=== PATIENT | male | born 1945 | race Caucasian/White ===

== ENCOUNTER 2019-07-22 11:31 | Emergency (ER) | payer MEDICARE ==
[~2019-07-22] VITALS: Ht 171 cm; Wt 78.4 kg
--- NOTE | 2019-07-22 12:25 | ED General ---
General Chief Complaint: General Problems/Pain Stated Complaint: TROUBLE SWALLOWING History of Present Illness Date Seen by Provider: Jul 22, 2019 Time Seen by Provider: 12:19 Initial Comments 73-year-old male started to have a lower substernal discomfort yesterday afternoon described mostly as pressure He seems to link this in some way to difficulty swallowing possibly swallowing makes it worse but he doesn't seem to be describing GERD-type symptoms particularly He was able to swallow liquids and ice cream after this started, he is able to handle his own secretions He denies any history of esophageal problems he denies any history of cardiac problems but says he's had strokes is on 3 different blood pressure medicines and Plavix No radiation of pain no nausea vomiting no shortness of breath he says this pain maxed out at 4/10 it is currently 2/10 he apprears in no d istress Allergies and Home Medications Allergies Coded Allergies: No Known Drug Allergies (Unverified , 07/22/19) Patient Home Medication List Home Medication List Reviewed: Yes Review of Systems Review of Systems Constitutional: no symptoms reported EENTM: no symptoms reported Respiratory: no symptoms reported Cardiovascular: chest pain; No palpitations, No syncope Gastrointestinal: No abdominal pain, No nausea, No vomiting Genitourinary: no symptoms reported Musculoskeletal: no symptoms reported Skin: no symptoms reported Past Iqgkabs-Vziqst-Wqolaa Hx Patient Social History Recent Foreign Travel: No Physical Exam Vital Signs Vital Signs - First Documented 07/22/19 11:35 Temp 36.2 Pulse 66 Resp 18 B/P (MAP) 116/73 (87) Pulse Ox 93 O2 Delivery Room Air Capillary Refill : Height, Weight, BMI Height: '" Weight: lbs. oz. kg; BMI Method: General Appearance: No Apparent Distress, WD/WN Eyes: Bilateral Eye PERRL, Bilateral Eye EOMI HEENT: Moist Mucous Membranes Neck: Supple Respiratory: Lungs Clear, Normal Breath Sounds Cardiovascular: Regular Rate, Rhythm Gastrointestinal: Normal Bowel Sounds, No Pulsatile Mass, Non Tender, Soft Extremity: Normal Capillary Refill, Non Tender, No Pedal Edema Progress/Results/Core Measures Suspected Sepsis SIRS Temperature: Pulse: Respiratory Rate: Laboratory Tests 07/22/19 11:55: White Blood Count 7.3 Blood Pressure / Mean: Laboratory Tests 07/22/19 11:55: Creatinine 1.31H, INR Comment 1.0, Platelet Count 294, Total Bilirubin 0.6 Results/Orders Lab Results Laboratory Tests Test 07/22/19 11:55 Range/Units White Blood Count 7.3 4.3-11.0 10^3/uL Red Blood Count 5.24 4.35-5.85 10^6/uL Hemoglobin 15.6 13.3-17.7 G/DL Hematocrit 46 40-54 % Mean Corpuscular Volume 88 80-99 FL Mean Corpuscular Hemoglobin 30 25-34 PG Mean Corpuscular Hemoglobin Concent 34 32-36 G/DL Red Cell Distribution Width 13.2 10.0-14.5 % Platelet Count 294 130-400 10^3/uL Mean Platelet Volume 9.7 7.4-10.4 FL Neutrophils (%) (Auto) 69 42-75 % Lymphocytes (%) (Auto) 20 12-44 % Monocytes (%) (Auto) 9 0-12 % Eosinophils (%) (Auto) 1 0-10 % Basophils (%) (Auto) 1 0-10 % Neutrophils # (Auto) 5.0 1.8-7.8 X 10^3 Lymphocytes # (Auto) 1.5 1.0-4.0 X 10^3 Monocytes # (Auto) 0.6 0.0-1.0 X 10^3 Eosinophils # (Auto) 0.1 0.0-0.3 10^3/uL Basophils # (Auto) 0.1 0.0-0.1 10^3/uL Prothrombin Time 13.2 12.2-14.7 SEC INR Comment 1.0 0.8-1.4 Activated Partial Thromboplast Time 30 24-35 SEC Sodium Level 142 135-145 MMOL/L Potassium Level 4.8 3.6-5.0 MMOL/L Chloride Level 104 98-107 MMOL/L Carbon Dioxide Level 27 21-32 MMOL/L Anion Gap 11 5-14 MMOL/L Blood Urea Nitrogen 10 7-18 MG/DL Creatinine 1.31 H 0.60-1.30 MG/DL Estimat Glomerular Filtration Rate 53 BUN/Creatinine Ratio 8 Glucose Level 106 H 70-105 MG/DL Calcium Level 10.0 8.5-10.1 MG/DL Corrected Calcium 8.5-10.1 MG/DL Magnesium Level 2.2 1.6-2.4 MG/DL Total Bilirubin 0.6 0.1-1.0 MG/DL Aspartate Amino Transf (AST/SGOT) 19 5-34 U/L Alanine Aminotransferase (ALT/SGPT) 22 0-55 U/L Alkaline Phosphatase 93 40-136 U/L Troponin I < 0.30 <0.30 NG/ML Total Protein 7.2 6.4-8.2 GM/DL Albumin 4.6 H 3.2-4.5 GM/DL Smear Scan My Orders Orders - VINCE WATSON MD Cbc With Automated Diff (07/22/19 12:16) Magnesium (07/22/19 12:16) Chest 1 View Ap/Pa Only (07/22/19 12:16) Ekg Tracing (07/22/19 12:16) Comprehensive Metabolic Panel (07/22/19 12:16) Protime With Inr (07/22/19 12:16) Partial Thromboplastin Time (07/22/19 12:16) O2 (07/22/19 12:16) Monitor-Rhythm Ecg Trace Only (07/22/19 12:16) Ed Iv/Invasive Line Start (07/22/19 12:16) Troponin I Fs (07/22/19 12:16) Aspirin Chewable Tablet (Baby Aspirin Ch (07/22/19 12:30) Clopidogrel Tablet (Plavix Tablet) (07/22/19 12:30) Medications Given in ED Current Medications Medications Dose Ordered Sig/Ethel Route Start Time Stop Time Status Last Admin Dose Admin Aspirin 324 mg ONCE ONCE PO 07/22/19 12:30 07/22/19 12:31 DC 07/22/19 12:33 324 MG Clopidogrel Bisulfate 75 mg ONCE ONCE PO 07/22/19 12:30 07/22/19 12:31 DC 07/22/19 12:33 75 MG Vital Signs/I&O 07/22/19 11:35 Temp 36.2 Pulse 66 Resp 18 B/P (MAP) 116/73 (87) Pulse Ox 93 O2 Delivery Room Air Capillary Refill : Progress Note : Progress Note Throughout the patient's stay here, he never seemed to be in any significant distress We did administer oral Plavix and aspirin and he seemed to swallow without difficulty her emained in a sinus rhythm at about 60 with occasional PVCs, never couplets no runs of V. tach Chest x-ray was read as representing COPD but no acute process CBC CMP and troponin were all negative Discussed the patient's situation with him at some length feel that with his age, history of vascular disease etc. he probably should be an overnight admission to complete cardiac rule out ECG Comment EKG shows a sinus rhythm with a rate of 61 he has unifocal PVCs no acute ST changes Departure Impression Primary Impression: Chest pain Qualified Codes: R07.9 - Chest pain, unspecified Disposition: 07 AGAINST MEDICAL ADVICE Condition: Stable Departure-Patient Inst. Referrals: MIKALA CAMPBELL MD (PCP/Family) Primary Care Physician Patient Instructions: Chest Pain Add. Discharge Instructions: Don't hesitate to return if you are worsening in some way VINCE WATSON MD Jul 22, 2019 12:25 POS
[2019-07-22 12:27] LABS: BASOPHILS # (AUTO) 0.1 10^3/uL (0.0-0.1); BASOPHILS % (AUTO) 1 % (0-10); EOSINOPHILS # (AUTO) 0.1 10^3/uL (0.0-0.3); EOSINOPHILS % (AUTO) 1 % (0-10); HEMATOCRIT 46 % (40-54); HEMOGLOBIN 15.6 G/DL (13.3-17.7); LYMPHOCYTES # (AUTO) 1.5 X 10^3 (1.0-4.0); LYMPHOCYTES % (AUTO) 20 % (12-44); MEAN CORPUSCULAR HEMOGLOBIN 30 PG (25-34); MEAN CORPUSCULAR HGB CONC 34 G/DL (32-36); MEAN CORPUSCULAR VOLUME 88 FL (80-99); MEAN PLATELET VOLUME 9.7 FL (7.4-10.4); MONOCYTES # (AUTO) 0.6 X 10^3 (0.0-1.0); MONOCYTES % (AUTO) 9 % (0-12); NEUTROPHILS % (AUTO) 69 % (42-75); PLATELET COUNT 294 10^3/uL (130-400); RED CELL DISTRIBUTION WIDTH 13.2 % (10.0-14.5); WHITE BLOOD COUNT 7.3 10^3/uL (4.3-11.0)
[2019-07-22] MEDS ORDERED: ASPIRIN 81 MG CHEW (CHILDREN'S ASA) PO ONE (12:30)
[2019-07-22] MEDS ORDERED: CLOPIDOGREL 75 MG (PLAVIX) TABLET PO ONE (12:30)
[2019-07-22 12:49] LABS: ALANINE AMINOTRANSFERASE 22 U/L (0-55); ALBUMIN 4.6 GM/DL (3.2-4.5); ALKALINE PHOSPHATASE 93 U/L (40-136); BILIRUBIN,TOTAL 0.6 MG/DL (0.1-1.0); BUN/CREATININE RATIO 8; CARBON DIOXIDE 27 MMOL/L (21-32); CHLORIDE 104 MMOL/L (98-107); CREATININE SERUM 1.31 MG/DL (0.60-1.30); GFR ESTIMATED 53; GLUCOSE 106 MG/DL (70-105); MAGNESIUM 2.2 MG/DL (1.6-2.4); POTASSIUM 4.8 MMOL/L (3.6-5.0); SODIUM 142 MMOL/L (135-145); TOTAL PROTEIN 7.2 GM/DL (6.4-8.2)
--- NOTE | 2019-07-22 12:56 | Diagnostic Imaging Report ---
INDICATION: Chest pain and difficulty swallowing. TIME OF EXAM: 12:24 p.m. COMPARISON: No prior studies are available for comparison. FINDINGS: The heart size normal. Lungs do show some hyperinflation consistent with COPD. No infiltrates are seen. No effusion or pneumothorax is detected. IMPRESSION: COPD. No acute feature is detected. Dictated by: Dictated on workstation # [id number]
[2019-07-22 13:24] LABS: PROTHROMBIN TIME PATIENT 13.2 SEC (12.2-14.7)
[2019-07-22 13:57] VITALS: BP 131/78
--- OUTSIDE RECORDS SUMMARY | 2019-08-15 05:33 | XMS REPORT | Continuity of Care Document ---
Author Organization Unknown POS Address Unknown SP Phone Unavailable SP Allergies Active Description Code Type Severity POS Reaction Onset Reported/Identified POS to Patient Clinical Status POS Yes No Known Drug Allergies [id number] Drug SP Unknown N/A 07/22/2019 SP SP Medications There is no data. Problems Date Dx Coded Attending Type Code POS Diagnosed By POS 07/26/2019 VINCE WATSON MD Ot R07. 9 SP PAIN, UNSPECIFIED SP 07/26/2019 JONES DO, JUSTICE Ot E78.5 SP UNSPECIFIED SP 07/26/2019 JONES DO, JUSTICE Ot I10 SP (PRIMARY) HYPERTENSION SP 07/26/2019 JONES DO, JUSTICE Ot I20.0 SP ANGINA SP 07/26/2019 JONES DO, JUSTICE Ot Z86.73 SP HX OF TIA (TIA), AND CEREB INFRC W SP 07/26/2019 JONES DO, JUSTICE Ot Z87.89 1 SP HISTORY OF NICOTINE DEPENDENCE SP 07/26/2019 JONES DO, JUSTICE Ot Z90.89 SP ABSENCE OF OTHER ORGANS SP 07/28/2019 JONES DO, JUSTICE Ot E78.5 SP UNSPECIFIED SP 07/28/2019 JONES DO, JUSTICE Ot I10 SP (PRIMARY) HYPERTENSION SP 07/28/2019 JONES DO, JUSTICE Ot I20.0 SP ANGINA SP 07/28/2019 JONES DO, JUSTICE Ot Z86.73 SP HX OF TIA (TIA), AND CEREB INFRC W SP 07/28/2019 JONES DO, JUSTICE Ot Z87.89 1 SP HISTORY OF NICOTINE DEPENDENCE SP 07/28/2019 JONES DO, JUSTICE Ot Z90.89 SP ABSENCE OF OTHER ORGANS SP 07/30/2019 VINCE WATSON MD Ot R07. 9 SP PAIN, UNSPECIFIED SP 07/30/2019 VINCE WATSON MD Ot R07. 9 SP PAIN, UNSPECIFIED SP 07/31/2019 JONES DO, JUSTICE Ot E78.5 SP UNSPECIFIED SP 07/31/2019 JONES DO, JUSTICE Ot I10 SP (PRIMARY) HYPERTENSION SP 07/31/2019 JONES DO, JUSTICE Ot I20.0 SP ANGINA SP 07/31/2019 JONES DO, JUSTICE Ot Z86.73 SP HX OF TIA (TIA), AND CEREB INFRC W SP 07/31/2019 JONES DO, JUSTICE Ot Z87.89 1 SP HISTORY OF NICOTINE DEPENDENCE SP 07/31/2019 JONES DO, JUSTICE Ot Z90.89 SP ABSENCE OF OTHER ORGANS SP 08/05/2019 JONES DO, JUSTICE Ot E78.5 SP UNSPECIFIED SP 08/05/2019 JONES DO, JUSTICE Ot I10 SP (PRIMARY) HYPERTENSION SP 08/05/2019 JONES DO, JUSTICE Ot I20.0 SP ANGINA SP 08/05/2019 JONES DO, JUSTICE Ot Z86.73 SP HX OF TIA (TIA), AND CEREB INFRC W SP 08/05/2019 JONES DO, JUSTICE Ot Z87.89 1 SP HISTORY OF NICOTINE DEPENDENCE SP 08/05/2019 JONES DO, JUSTICE Ot Z90.89 SP ABSENCE OF OTHER ORGANS SP Procedures There is no data. Results Test Result Range POS Complete blood count (CBC) with automate d white blood cell (WBC) differential - POS 11:55 Blood leukocytes automated count (number/volume) 7.3 10*3/uL POS 4.3-11.0 SP Blood erythrocytes automated count (number/volume) 5.24 10*6/uL SP 4.35-5.85 SP Venous blood hemoglobin measurement (mass/volume) 15.6 g/dL SP17.7 Blood hematocrit (volume fraction) 46 % 40-54 SP Automated erythrocyte mean corpuscular volume 88 [ foz_us] SP99 Automated erythrocyte mean corpuscular h emoglobin (mass per erythrocyte) SP 30 pg 25-34 SP Automated erythrocyte mean corpuscular h emoglobin concentration measurement SP 34 g/dL 32-36 SP Automated erythrocyte distribution width ratio 13. 2 % 10.0- SP Automated blood platelet count (count/volume) 294 10*3/uL SP400 Automated blood platelet mean volume measurement 9.7 [foz_us] SP 7.4-10.4 SP Automated blood neutrophils/100 leukocytes 69 % 42-75 SP Automated blood lymphocytes/100 leukocytes 20 % 12-44 SP Blood monocytes/100 leukocytes 9 % 0-12 SP Automated blood eosinophils/100 leukocytes 1 % 0-10 SP Automated blood basophils/100 leukocytes 1 % 0-10 SP Blood neutrophils automated count (number/volume) 5.0 10*3 SP7.8 Blood lymphocytes automated count (number/volume) 1.5 10*3 SP4.0 Blood monocytes automated count (number/volume) 0. 6 10*3 SP1.0 Automated eosinophil count 0.1 10*3/uL 0 .0-0.3 SP Automated blood basophil count (count/volume) 0.1 10*3/uL SP0.1 TROPONIN I FS - 07/22/19 11:55 POS TROPONIN I FS < 0.30 <0.30 SP Comprehensive metabolic panel - 07/22/19 11:55 POS Serum or plasma sodium measurement (moles/volume) 142 mmol/L SP 135-145 SP Serum or plasma potassium measurement (moles/volume) 4.8 mmol/L SP 3.6-5.0 SP Serum or plasma chloride measurement (moles/volume) 104 mmol/L SP 98-107 SP Carbon dioxide 27 mmol/L 21-32 SP Serum or plasma anion gap determination (moles/volume) 11 mmol/L SP 5-14 SP Serum or plasma urea nitrogen measurement (mass/volume ) 10 mg/dL SP 7-18 SP Serum or plasma creatinine measurement (mass/volume) 1.31 mg/dL SP 0.60-1.30 SP Serum or plasma urea nitrogen/creatinine mass ratio 8 NRG SP Serum or plasma creatinine measurement w ith calculation of estimated glomerular SP rate 53 NRG SP Serum or plasma glucose measurement (mass/volume) 106 mg/dL SP105 Serum or plasma calcium measurement (mass/volume) 10.0 mg/dL SP 8.5-10.1 SP Serum or plasma total bilirubin measurement (mass/volu me) 0.6 mg/dL SP 0.1-1.0 SP Serum or plasma alkaline phosphatase katie surement (enzymatic activity/volume) SP 93 U/L 40-136 SP Serum or plasma aspartate aminotransfera se measurement (enzymatic SP 19 U/L 5-34 SP Serum or plasma alanine aminotransferase measurement (enzymatic activity/volume) SP 22 U/L 0-55 SP Serum or plasma protein measurement (mass/volume) 7.2 g/dL SP8.2 Serum or plasma albumin measurement (mass/volume) 4.6 g/dL SP4.5 Magnesium - 07/22/19 11:55 POS Magnesium 2.2 mg/dL 1.6-2.4 SP PT panel in platelet poor plasma by coag ulation assay - 07/22/19 11:55 POS Prothrombin time (PT) in platelet poor plasma by coagu lation assay SP s 12.2-14.7 SP INR in platelet poor plasma or blood by coagulation as say 1.0 SP 0.8-1.4 SP Activated partial thromboplastin time (a PTT) in platelet poor plasma POS assay - 07/22/19 11:55 Activated partial thromboplastin time (a PTT) in platelet poor plasma POS assay 30 s 24-35 SP Complete blood count (CBC) with automate d white blood cell (WBC) differential - POS 10:20 Blood leukocytes automated count (number/volume) 6.8 10*3/uL POS 4.3-11.0 SP Blood erythrocytes automated count (number/volume) 4.86 10*6/uL SP 4.35-5.85 SP Venous blood hemoglobin measurement (mass/volume) 14.8 g/dL SP17.7 Blood hematocrit (volume fraction) 43 % 40-54 SP Automated erythrocyte mean corpuscular volume 87 [ foz_us] SP99 Automated erythrocyte mean corpuscular h emoglobin (mass per erythrocyte) SP 30 pg 25-34 SP Automated erythrocyte mean corpuscular h emoglobin concentration measurement SP 35 g/dL 32-36 SP Automated erythrocyte distribution width ratio 13. 1 % 10.0- SP Automated blood platelet count (count/volume) 278 10*3/uL SP400 Automated blood platelet mean volume measurement 9.9 [foz_us] SP 7.4-10.4 SP Automated blood neutrophils/100 leukocytes 66 % 42-75 SP Automated blood lymphocytes/100 leukocytes 22 % 12-44 SP Blood monocytes/100 leukocytes 10 % 0-12 SP Automated blood eosinophils/100 leukocytes 1 % 0-10 SP Automated blood basophils/100 leukocytes 1 % 0-10 SP Blood neutrophils automated count (number/volume) 4.5 10*3 SP7.8 Blood lymphocytes automated count (number/volume) 1.5 10*3 SP4.0 Blood monocytes automated count (number/volume) 0. 7 10*3 SP1.0 Automated eosinophil count 0.1 10*3/uL 0 .0-0.3 SP Automated blood basophil count (count/volume) 0.1 10*3/uL SP0.1 PT panel in platelet poor plasma by coag ulation assay - 07/25/19 10:20 POS Prothrombin time (PT) in platelet poor plasma by coagu lation assay SP s 12.2-14.7 SP INR in platelet poor plasma or blood by coagulation as say 1.0 SP 0.8-1.4 SP Activated partial thromboplastin time (a PTT) in platelet poor plasma POS assay - 07/25/19 10:20 Activated partial thromboplastin time (a PTT) in platelet poor plasma POS assay 23 s 24-35 SP TROPONIN I FS - 07/25/19 10:20 POS TROPONIN I FS < 0.30 <0.30 SP PROBNP FS - 07/25/19 10:20 POS PROBNP FS 69.9 pg/mL <75.0 SP Comprehensive metabolic panel - 07/25/19 10:20 POS Serum or plasma sodium measurement (moles/volume) 142 mmol/L SP 135-145 SP Serum or plasma potassium measurement (moles/volume) 3.8 mmol/L SP 3.6-5.0 SP Serum or plasma chloride measurement (moles/volume) 102 mmol/L SP 98-107 SP Carbon dioxide 21 mmol/L 21-32 SP Serum or plasma anion gap determination (moles/volume) 19 mmol/L SP 5-14 SP Serum or plasma urea nitrogen measurement (mass/volume ) 23 mg/dL SP 7-18 SP Serum or plasma creatinine measurement (mass/volume) 1.22 mg/dL SP 0.60-1.30 SP Serum or plasma urea nitrogen/creatinine mass ratio 19 NRG SP Serum or plasma creatinine measurement w ith calculation of estimated glomerular SP rate 58 NRG SP Serum or plasma glucose measurement (mass/volume) 93 mg/dL SP105 Serum or plasma calcium measurement (mass/volume) 9.7 mg/dL SP10.1 Serum or plasma total bilirubin measurement (mass/volu me) 0.6 mg/dL SP 0.1-1.0 SP Serum or plasma alkaline phosphatase katie surement (enzymatic activity/volume) SP 82 U/L 40-136 SP Serum or plasma aspartate aminotransfera se measurement (enzymatic SP 17 U/L 5-34 SP Serum or plasma alanine aminotransferase measurement (enzymatic activity/volume) SP 18 U/L 0-55 SP Serum or plasma protein measurement (mass/volume) 7.0 g/dL SP8.2 Serum or plasma albumin measurement (mass/volume) 4.5 g/dL SP4.5 CALCIUM CORRECTED 9.3 mg/dL 8.5-10.1 SP Magnesium - 07/25/19 10:20 POS Magnesium 2.0 mg/dL 1.6-2.4 SP Methicillin resistant Staphylococcus aur eus (MRSA) screening culture - 07/25/19 POS Methicillin resistant Staphylococcus aureus (MRSA) scr eening culture POS NRG SP Encounters ACCT No. Visit Date/Time Discharge Status POS Pt. Type Provider Facility Loc./Un it POS Complaint POS [id number] 07/25/2019 12:15:00 019 17:13:00 SP DIS Outpatient JUSTICE JONES DO [facility] CATH CHEST PAIN, PALPITATIONS SP [id number] 07/22/2019 11:33:00 019 13:57:00 SP DIS Outpatient VINCE WATSON MD [address] ER FS TROUBLE SWALLOWING SP [id number] 07/22/2019 12:18:00 SP Registration SP
--- OUTSIDE RECORDS SUMMARY | 2019-08-15 05:33 | XMS REPORT ---
Author Author SREEDHAR CRAFT POS [facility] [address] Address [address] [place] [address] SP Care Team Providers Care Steward/Stewardess Third Name Role Phone POS SREEDHAR CRAFT Unavailable SP PROBLEMS Unknown Problems ALLERGIES No Known Allergies ENCOUNTERS Encounter Location Date Diagnosis POS [facility] [address] [place] [address] 25 Jun, 18 Dental SP Z01.20 and Caries K02.9 [facility] [address] [place] [address] 11 Jun, 18 Dental SP Z01.20 ; Caries K02.9 and Periodontitis K05.30 IMMUNIZATIONS No Known Immunizations SOCIAL HISTORY Never Assessed REASON FOR VISIT Rupert Enciso PLAN OF CARE Activity Details POS SP Follow Up 6 Months Reason:6 MO SP VITAL SIGNS Heart Rate 58 bpm 2018-07-15 POS Blood pressure systolic 136 mmHg 2018-07-15 POS Blood pressure diastolic 75 mmHg 2018-07-15 POS MEDICATIONS Medication Instructions Dosage Frequency Start Date End Date Duration S tatus POS Aspirin Active SP Benadryl Active SP Lisinopril Active SP toprol Active SP Lovastatin Active SP Norvasc Active SP Plavix Active SP RESULTS No Results PROCEDURES Procedure Date Ordered Result Body Site POS RESIN COMPOS - 1 SURFACE POSTERIOR Jul 15, 2018 SP RESIN COMPOS - 2 SURFACES POSTERIOR Jul 15, 2018 SP INSTRUCTIONS MEDICATIONS ADMINISTERED No Known Medications MEDICAL (GENERAL) HISTORY Type Description Date POS Medical History high blood pressure SP Medical History Stroke 5-6 years ago SP Medical History high cholesterol SP Medical History blood thinners - plavix SP Surgical History No Surgical history information SP Hospitalization History stroke SP
== END 2019-07-22 13:57 | disposition left against medical advice (07) ==
LOC: EDUNIT# 11:31 → ER FS 11:33
DX: R07.9 Chest pain, unspecified (principal)
CPT/HCPCS: 36415; 71045; 80053; 83735; 84484; 85025; 85610; 85730; 93005; 93041

== ENCOUNTER 2019-07-25 10:03 | Day surgery (SDC) | payer MEDICARE ==
[~2019-07-25] VITALS: Ht 170.2 cm; Wt 76.2 kg
[2019-07-25] MEDS ORDERED: ASPIRIN 81 MG CHEW (CHILDREN'S ASA) PO ONE (10:30)
[2019-07-25 10:45] LABS: BASOPHILS # (AUTO) 0.1 10^3/uL (0.0-0.1); BASOPHILS % (AUTO) 1 % (0-10); EOSINOPHILS # (AUTO) 0.1 10^3/uL (0.0-0.3); EOSINOPHILS % (AUTO) 1 % (0-10); HEMATOCRIT 43 % (40-54); HEMOGLOBIN 14.8 G/DL (13.3-17.7); LYMPHOCYTES # (AUTO) 1.5 X 10^3 (1.0-4.0); LYMPHOCYTES % (AUTO) 22 % (12-44); MEAN CORPUSCULAR HEMOGLOBIN 30 PG (25-34); MEAN CORPUSCULAR HGB CONC 35 G/DL (32-36); MEAN CORPUSCULAR VOLUME 87 FL (80-99); MEAN PLATELET VOLUME 9.9 FL (7.4-10.4); MONOCYTES # (AUTO) 0.7 X 10^3 (0.0-1.0); MONOCYTES % (AUTO) 10 % (0-12); NEUTROPHILS # (AUTO) 4.5 X 10^3 (1.8-7.8); NEUTROPHILS % (AUTO) 66 % (42-75); PLATELET COUNT 278 10^3/uL (130-400); RED CELL DISTRIBUTION WIDTH 13.1 % (10.0-14.5); WHITE BLOOD COUNT 6.8 10^3/uL (4.3-11.0)
--- NOTE | 2019-07-25 10:59 | ED Cardiac General ---
History of Present Illness General Chief Complaint: Cardiac/General Problems Stated Complaint: RAPID/IRREGULAR HR Source: patient Exam Limitations: no limitations History of Present Illness Date Seen by Provider: Jul 25, 2019 Time Seen by Provider: 10:20 Initial Comments The patient is a pleasant 73-year-old male presents for evaluation of intermittent chest discomfort over the last 3 days or so as well as some palpitations/feeling of racing heart. He was actually seen in this emergency department on Thursday and it was recommended that he be admitted to the hospital however he left AGAINST MEDICAL ADVICE. Today he states he is willing to be admitted if necessary. He is here with his . She states that he has been complaining of intermittent chest discomfort all weekend. He denies ever having a heart catheterization or stress test. He did not take an aspirin yet today. He denies any current chest pain and states last time he had any chest pain was ye morning. He is alert and oriented 4, calm, and appears to be in no distress this time. To history of CVA but no MO. Severity: mild Location: substernal Activities at Onset: none NTG SL WOOL CLASSER: No ASA po WOOL CLASSER: No Associated Systoms: Denies Symptoms Allergies and Home Medications Allergies Coded Allergies: No Known Drug Allergies (Unverified , 07/22/19) Patient Home Medication List Home Medication List Reviewed: Yes Review of Systems Review of Systems Constitutional: no symptoms reported EENTM: No Symptoms Reported Respiratory: No Symptoms Reported, See HPI Cardiovascular: Chest Pain (none currently) Gastrointestinal: No Symptoms Reported, See HPI Genitourinary: No Symptoms Reported, See HPI Musculoskeletal: no symptoms reported Skin: no symptoms reported Psychiatric/Neurological: No Symptoms Reported, See HPI Endocrine: No Symptoms Reported, See HPI Hematologic/Lymphatic: No Symptoms Reported, See HPI All Other Systems Reviewed Negative Unless Noted: Yes Past Zwsfkzy-Wkexgf-Waquxu Hx Past Med/Social Hx: Reviewed Nursing Past Med/Soc Hx Patient Social History 2nd Hand Smoke Exposure: No Recent Foreign Travel: No Recent Hopitalizations: No Immunizations Up To Date Date of Influenza Vaccine: Jun 21, 2019 Seasonal Allergies Seasonal Allergies: No Past Medical History Surgeries: Yes Appendectomy Respiratory: No Cardiac: Yes Hypertension Neurological: Yes (CVA 2009 and 2016) Stroke Genitourinary: No Gastrointestinal: Yes Diverticulosis Musculoskeletal: No Endocrine: No HEENT: No Cancer: No Psychosocial: No Integumentary: No Blood Disorders: No Physical Exam Vital Signs Vital Signs - First Documented 07/25/19 10:10 Temp 36.3 Pulse 95 Resp 16 B/P (MAP) 134/73 (93) Pulse Ox 96 O2 Delivery Room Air Capillary Refill : Height, Weight, BMI Height: '" Weight: lbs. oz. kg; 26.00 BMI Method: General Appearance: No Apparent Distress, WD/WN HEENT: PERRL/EOMI, TMs Normal, Normal ENT Inspection, Pharynx Normal Neck: Full Range of Motion, Normal Inspection, Non Tender Respiratory: Chest Non Tender, Lungs Clear, Normal Breath Sounds, No Accessory Muscle Use, No Respiratory Distress Cardiovascular: Regular Rate, Rhythm, No Edema, No Gallop, No JVD, No Murmur, Normal Peripheral Pulses Gastrointestinal: Normal Bowel Sounds, No Organomegaly, No Pulsatile Mass, Non Tender Extremity: Normal Capillary Refill, Normal Inspection, Normal Range of Motion, Non Tender, No Calf Tenderness, No Pedal Edema Neurologic/Psychiatric: Alert, Oriented x3, No Motor/Sensory Deficits, Normal Mood/Affect Skin: Normal Color, Warm/Dry Lymphatic: No Adenopathy Progress/Results/Core Measures Results/Orders Lab Results Laboratory Tests Test 07/25/19 10:20 Range/Units White Blood Count 6.8 4.3-11.0 10^3/uL Red Blood Count 4.86 4.35-5.85 10^6/uL Hemoglobin 14.8 13.3-17.7 G/DL Hematocrit 43 40-54 % Mean Corpuscular Volume 87 80-99 FL Mean Corpuscular Hemoglobin 30 25-34 PG Mean Corpuscular Hemoglobin Concent 35 32-36 G/DL Red Cell Distribution Width 13.1 10.0-14.5 % Platelet Count 278 130-400 10^3/uL Mean Platelet Volume 9.9 7.4-10.4 FL Neutrophils (%) (Auto) 66 42-75 % Lymphocytes (%) (Auto) 22 12-44 % Monocytes (%) (Auto) 10 0-12 % Eosinophils (%) (Auto) 1 0-10 % Basophils (%) (Auto) 1 0-10 % Neutrophils # (Auto) 4.5 1.8-7.8 X 10^3 Lymphocytes # (Auto) 1.5 1.0-4.0 X 10^3 Monocytes # (Auto) 0.7 0.0-1.0 X 10^3 Eosinophils # (Auto) 0.1 0.0-0.3 10^3/uL Basophils # (Auto) 0.1 0.0-0.1 10^3/uL Prothrombin Time 13.8 12.2-14.7 SEC INR Comment 1.0 0.8-1.4 Activated Partial Thromboplast Time 23 L 24-35 SEC Sodium Level 142 135-145 MMOL/L Potassium Level 3.8 3.6-5.0 MMOL/L Chloride Level 102 98-107 MMOL/L Carbon Dioxide Level 21 21-32 MMOL/L Anion Gap 19 H 5-14 MMOL/L Blood Urea Nitrogen 23 H 7-18 MG/DL Creatinine 1.22 0.60-1.30 MG/DL Estimat Glomerular Filtration Rate 58 BUN/Creatinine Ratio 19 Glucose Level 93 70-105 MG/DL Calcium Level 9.7 8.5-10.1 MG/DL Corrected Calcium 9.3 8.5-10.1 MG/DL Magnesium Level 2.0 1.6-2.4 MG/DL Total Bilirubin 0.6 0.1-1.0 MG/DL Aspartate Amino Transf (AST/SGOT) 17 5-34 U/L Alanine Aminotransferase (ALT/SGPT) 18 0-55 U/L Alkaline Phosphatase 82 40-136 U/L Troponin I < 0.30 <0.30 NG/ML Pro-B-Type Natriuretic Peptide 69.9 <75.0 PG/ML Total Protein 7.0 6.4-8.2 GM/DL Albumin 4.5 3.2-4.5 GM/DL My Orders Orders - DES RAYMUNDO DO Ekg Tracing (07/25/19 10:06) Continuous Ekg Monitoring (07/25/19 10:06) Cbc With Automated Diff (07/25/19 10:24) Magnesium (07/25/19 10:24) Chest 1 View Ap/Pa Only (07/25/19 10:24) Comprehensive Metabolic Panel (07/25/19 10:24) Protime With Inr (07/25/19 10:24) Partial Thromboplastin Time (07/25/19 10:24) O2 (07/25/19 10:24) Monitor-Rhythm Ecg Trace Only (11/4/19 10:24) Aspirin Chewable Tablet (Baby Aspirin Ch (07/25/19 10:30) Ed Iv/Invasive Line Start (07/25/19 10:24) Troponin I Fs (07/25/19 10:24) Probnp Fs (07/25/19 10:24) Ekg Tracing (07/25/19 11:30) Morphine Injection (Morphine Injection (07/25/19 11:30) Medications Given in ED Current Medications Medications Dose Ordered Sig/Ethel Route Start Time Stop Time Status Last Admin Dose Admin Aspirin 324 mg ONCE ONCE PO 07/25/19 10:30 07/25/19 10:31 DC 07/25/19 10:40 324 MG Vital Signs/I&O 07/25/19 10:10 Temp 36.3 Pulse 95 Resp 16 B/P (MAP) 134/73 (93) Pulse Ox 96 O2 Delivery Room Air Progress Progress Note : Progress Note @1142 - patient and family updated on lab and imaging results. The patient continues to intermittently have chest pain but is not having any currently. Case discussed with Dr. Hughes who accepts admission at [facility] and requests a cardiac consultation with Dr. Mcqueen. The patient is agreeable to this admission. EKG : Comment EKG@1006 - Normal sinus rhythm, rate of 82, normal axis, no acute ischemic findings noted, no STEMI, reviewed and interpreted by myself Departure Communication (Admissions) Time/Spoke to Admitting Phy: 11:42 Dr. Hughes accepts the admission at this time and requests cardiac consult with Dr. Mcqueen. @1153 - Dr. Mcqueen accepts the cardiac consultation Impression Primary Impression: Chest pain Additional Impression: Palpitations Disposition: 09 ADMITTED INPATIENT Condition: Stable Admissions Decision to Admit Reason: Admit from ER (General) Decision to Admit/Date: Jul 25, 2019 Time/Decision to Admit Time: 11:42 Departure-Patient Inst. Referrals: MIKALA CAMPBELL MD (PCP/Family) Primary Care Physician DES RAYMUNDO DO Jul 25, 2019 10:59 POS
--- NOTE | 2019-07-25 10:59 | Diagnostic Imaging Report ---
INDICATION: Chest pain. TECHNIQUE: Frontal chest obtained at 10:29 a.m. and compared to 07/22/2019. FINDINGS: Heart and mediastinal silhouette are normal in appearance. There is some minimal left basilar scarring or atelectasis. There is no consolidation or pneumothorax or pleural fluid. There is underlying COPD changes with hyperinflation. IMPRESSION: COPD changes with mild left basilar scarring or atelectasis. No consolidation or pleural fluid. Dictated by: Dictated on workstation # [id number]
[2019-07-25 11:09] LABS: PROTHROMBIN TIME PATIENT 13.8 SEC (12.2-14.7)
[2019-07-25 11:10] LABS: BILIRUBIN,TOTAL 0.6 MG/DL (0.1-1.0); CALCIUM 9.7 MG/DL (8.5-10.1); CREATININE SERUM 1.22 MG/DL (0.60-1.30); POTASSIUM 3.8 MMOL/L (3.6-5.0)
[2019-07-25 11:11] LABS: ALBUMIN 4.5 GM/DL (3.2-4.5)
[2019-07-25] MEDS ORDERED: morphine INJ 10 MG/ML 1ML (SYR OR VIAL) IVP STA (11:30)
[2019-07-25 17:45] VITALS: BP 154/85
--- NOTE | 2019-07-25 17:58 | Consultation-Cardiology ---
HPI-Cardiology Cardiology Consultation: Date of Consultation 07/25/19 Time Seen by a Provider: 17:40 Date of Admission Attending Physician Karin Hughes DO Admitting Physician Filiberto Zaldivar MD Consulting Physician AL PAULA MD, MA, FACP, FACC, FSCAI, CCDS HPI: Chief Complaint: CC: Chest discomfort HPI 73 yo man admitted to Dr Hughes from [facility] with chest discomfort: onset several months ago, averaging once or twice a week, midsternal, pressure-like, moderate in intensity, w/o radiation, occurring at rest, relieved with 's s/l NTG, not associated with other symptoms. He has chronic exertional shortness of breath He has chronic, intermittent palpitations consisting of a hard heart or a dropped beat or a flip-flop. No sustained palpitations No syncope or presyncope Review of Systems-Cardiology Review of Systems Constitutional: tiredness; No weight loss Eyes: No vision change Ears/Nose/Throat: No ear discharge, No nasal drainage, No recent hearing loss Cardiovascular: As described under HPI Gastrointestinal: No diarrhea, No vomiting Genitourinary: No dysuria, No hematuria, No urine frequency changes Musculoskeletal: No back pain, No joint pain Skin: No rash, No ulcerations Psychiatric/Neurological: No seizure, No focal weakness, No syncope Hematologic: No bleeding abnormalities All Other Systems Reviewed Negative Unless Noted: Yes XQT-Pgxbzx-Kivtmj Hx Patient Social History Alcohol Use: Denies Use Recreational Drug Use: No Smoking Status: Former Smoker Type Used: Cigarettes 2nd Hand Smoke Exposure: No Recent Foreign Travel: No Recent Infectious Disease Expo: No Hospitalization with Isolation: Denies Immunizations Up To Date Date of Influenza Vaccine: Jun 21, 2019 Past Medical History PMH As described under Assessment. Family Medical History Family Medical History: He does not report fam h/o early CAD or SCD Allergies and Home Medications Allergies Coded Allergies: No Known Drug Allergies (Unverified , 07/22/19) Patient Home Medication List Home Medication List Reviewed: Yes Physical Exam-Cardiology Physical Exam Vital Signs/I&O 07/25/19 07/25/19 07/25/19 10:10 16:00 17:25 Temp 36.3 Pulse 95 85 111 Resp 16 16 B/P (MAP) 134/73 (93) 125/69 Pulse Ox 96 93 O2 Delivery Room Air Room Air Capillary Refill : Less Than 3 Seconds Constitutional: AAO x 3, well-developed, well-nourished HEENT: EOMI, hearing is well preserved; No xanthelasmas are seen Neck: carotid pulses are 2 + bilaterally, with good upstrokes Respiratory: No accessory muscle use; other (fair to good bilat air entry; prolonged exp) Cardiovascular: regular rate-rhythm, S1 and S2, systolic murmur (faint SAMANTHA at card base) Gastrointestinal: No tender; soft; No guarding, No rebound; audible bowel sounds Extremities: No clubbing, No cyanosis, No significant edema Neurologic/Psychiatric: oriented x 3, other (moves all limbs equally) Skin: No rash on exposed areas, No ulcerations on exposed areas Data Review Labs Laboratory Tests 07/25/19 10:20: White Blood Count 6.8, Red Blood Count 4.86, Hemoglobin 14.8, Hematocrit 43, Mean Corpuscular Volume 87, Mean Corpuscular Hemoglobin 30, Mean Corpuscular Hemoglobin Concent 35, Red Cell Distribution Width 13.1, Platelet Count 278, Mean Platelet Volume 9.9, Neutrophils (%) (Auto) 66, Lymphocytes (%) (Auto) 22, Monocytes (%) (Auto) 10, Eosinophils (%) (Auto) 1, Basophils (%) (Auto) 1, Neutrophils # (Auto) 4.5, Lymphocytes # (Auto) 1.5, Monocytes # (Auto) 0.7, Eosinophils # (Auto) 0.1, Basophils # (Auto) 0.1, Prothrombin Time 13.8, INR Comment 1.0, Activated Partial Thromboplast Time 23L, Sodium Level 142, Potassium Level 3.8, Chloride Level 102, Carbon Dioxide Level 21, Anion Gap 19H, Blood Urea Nitrogen 23H, Creatinine 1.22, Estimat Glomerular Filtration Rate 58, BUN/Creatinine Ratio 19, Glucose Level 93, Calcium Level 9.7, Corrected Calcium 9.3, Magnesium Level 2.0, Total Bilirubin 0.6, Aspartate Amino Transf (AST/SGOT) 17, Alanine Aminotransferase (ALT/SGPT) 18, Alkaline Phosphatase 82, Troponin I < 0.30, Pro-B-Type Natriuretic Peptide 69.9, Total Protein 7.0, Albumin 4.5 Laboratory Tests 07/25/19 10:20 A/P-Cardiology Assessment/Admission Diagnosis Unstable angina Hypertension Hyperlipidemia Chronic tobacco use (smoking) that he quit in late 2018 Remote h/o CVA (resulting in gait imbalance that has since resolved). He does not know any details of that Discussion and Recomendations * Treat with bb, ASA, clopidogrel, and statin * Card cath recommended. I discussed the rationale, pros, and cons of card cath and possible ad hoc cor intervention. He understands and provides informed consent. Plan for tomorrow or earlier if needed Clinical Quality Measures AMI/AHF: ASA po Prior to arrival: AL Valdez MD FACP FACC CCDS Jul 25, 2019 17:58 POS
[2019-07-25 18:00] VITALS: BP 149/94
[2019-07-25] MEDS ORDERED: NITROGLYCERIN 0.4 MG SL TABS BTL 25'S SL PRN (18:15)
[2019-07-25] MEDS ORDERED: CLOPIDOGREL 75 MG (PLAVIX) TABLET PO NR (18:15)
[2019-07-25] MEDS ORDERED: meTOprolol SUCCINATE 100 MG (TOPROL XL) TAB PO NR (18:15)
[2019-07-25 20:00] VITALS: BP 138/88
[2019-07-26] VITALS (9 sets, daily range): BP systolic 122–146; BP diastolic 74–91
[2019-07-26] MEDS ORDERED: ASPIRIN 81 MG CHEW (CHILDREN'S ASA) PO SCH (09:00)
[2019-07-26] MEDS ORDERED: meTOprolol SUCCINATE 100 MG (TOPROL XL) TAB PO SCH (09:00)
[2019-07-26] MEDS ORDERED: CLOPIDOGREL 75 MG (PLAVIX) TABLET PO SCH (09:00)
[2019-07-26] MEDS ORDERED: LIDOCAINE 1% INJ 20 ML 20 ML VIAL ONE (09:08)
[2019-07-26] MEDS ORDERED: NS IV 1000 ML 1,000 ML ONE (09:08)
[2019-07-26] MEDS ORDERED: HEParin (CATH LAB) 2,000 ML IV ONE (09:08)
--- NOTE | 2019-07-26 09:28 | Short Stay Summary-Hospitalist ---
History of Present Illness HPI/Chief Complaint Chief complaint: Chest pain HPI: This is a 73yoWM who has a PMH of DM and HTN and HLP who has never had any heart testing before who presented to the [place] ER with chest pain and palpitations, Pt was found to be in need of cardiac catheterization, and he will have that by Dr. Mcqueen today. At this current time Pt denies any chest pain. Source: patient Exam Limitations: no limitations Date Seen 07/26/19 Time Seen by a Provider: 08:00 Attending Physician Karin Hughes Pankaj K MD Referring Physician Date of Admission Jul 25, 2019 at 12:15 Home Medications & Allergies Home Medications Reviewed patient Home Medication Reconciliation performed by pharmacy medication reconciliations occupational health technician and/or nursing. Patients Allergies have been reviewed. Allergies Allergies Coded Allergies No Known Drug Allergies (Ygivswirhm63/1/19) Past Qorftys-Yivlfr-Mweoma Hx Past Med/Social Hx: Reviewed Nursing Past Med/Soc Hx, Reviewed and Corrections made Patient Social History Marrital Status: Employed/Student: retired Alcohol Use: Denies Use Recreational Drug Use: No Smoking Status: Former Smoker Former Smoker, Quit: Jul 25, 2019 Type Used: Cigarettes 2nd Hand Smoke Exposure: No Recent Foreign Travel: No Contact w/other who traveled: No Recent Hopitalizations: No Recent Infectious Disease Expo: No Immunizations Up To Date Date of Influenza Vaccine: Jun 21, 2019 Seasonal Allergies Seasonal Allergies: No Past Medical History Surgeries: Appendectomy Cardiac: Hypertension Neurological: Stroke Gastrointestinal: Diverticulosis History of Blood Disorders: No Review of Systems Constitutional: see HPI Respiratory: dyspnea on exertion Cardiovascular: chest pain Physical Exam Physical Exam Vital Signs Vital Signs - First Documented 07/25/19 07/26/19 10:10 14:15 Temp 36.3 Pulse 95 Resp 16 B/P (MAP) 134/73 (93) Pulse Ox 96 O2 Delivery Room Air O2 Flow Rate 1.00 Capillary Refill : Less Than 3 Seconds Height, Weight, BMI Height: '" Weight: lbs. oz. kg; 26.00 BMI Method: General Appearance: No Apparent Distress, WD/WN, Chronically ill HEENT: PERRL/EOMI, TMs Normal, Normal ENT Inspection, Pharynx Normal Neck: Full Range of Motion, Normal Inspection, Non Tender Respiratory: Chest Non Tender, Lungs Clear, Normal Breath Sounds, No Accessory Muscle Use, No Respiratory Distress Cardiovascular: Regular Rate, Rhythm, No Edema, No Gallop, No JVD, No Murmur, Normal Peripheral Pulses Gastrointestinal: Normal Bowel Sounds, No Organomegaly, No Pulsatile Mass, Non Tender Extremity: Normal Capillary Refill, Normal Inspection, Normal Range of Motion, Non Tender, No Calf Tenderness, No Pedal Edema Neurologic/Psychiatric: Alert, Oriented x3, No Motor/Sensory Deficits, Normal Mood/Affect Skin: Normal Color, Warm/Dry Lymphatic: No Adenopathy Results Results/Procedures Labs Laboratory Tests 07/25/19 10:20 Patient resulted labs reviewed. Short Stay Diagnosis Discharge Diagnosis-Short Stay Admission Diagnosis Chest pain DM HTN HLP Final Discharge Diagnosis Chest pain DM HTN HLP Conclusion Plan Cath Diagnosis/Problems Diagnosis/Problems (1) Chest pain Status: Acute (2) Palpitations Status: Acute Clinical Quality Measures AMI/AHF: ASA po Prior to arrival: No DVT/VTE Risk/Contraindication: Risk Factor Score Per Nursin RFS Level Per Nursing on Admit: 4+=Very High KARIN HUGHES DO Jul 26, 2019 09:28 POS
--- NOTE | 2019-07-26 11:20 | NUR ---
Taken to cardiac catheterization technician
[2019-07-26] MEDS ORDERED: MIDAZOLAM 5 MG/5 ML (VERSED) VIAL ONE (11:46)
[2019-07-26] MEDS ORDERED: fentaNYL INJECTION 100 MCG/2 ML AMP ONE (11:46)
--- NOTE | 2019-07-26 11:50 | Cardiac Procedure Note-CS/ASA ---
Pre-Procedure Note Pre-Op Procedure Note H&P Reviewed The H&P was reviewed, patient examined and no changes noted. Date H&P Reviewed: Jul 26, 2019 Time H&P Reviewed: 11:50 Conscious Sedation Pre-Proced Time 11:50 ASA Score 3 For ASA 3 and 4: Consider anesthesia and medical clearance. Also, for patients with a history of failed moderate sedation consider anesthesia. Airway Lungs Heart ASA score ASA 1: a normal healthy patient ASA 2: a patient with a mild systemic disease (mid diabetes, controlled hypertension, obesity ASA 3: a patient with a severe systemic disease that limits activity (angina, COPD, prior Myocardial infarction) ASA 4: a patient with an incapacitating disease that is a constant threat to life (CHF, renal failure) ASA 5: a moribund patient not expected to survive 24 hrs. (ruptured aneurysm) ASA 6: a declared brain- patient whose organs are being harvested. For emergent operations, add the letter E after the classification Mallampati Classification Grade 2 Sedation Plan Analgesia, Amnesia, Plan communicated to team members, Discussed options with patient/fam, Discussed risks with patient/fam The patient is an appropriate candidate to undergo the planned procedure, sedation, and anesthesia. The patient immediately re-assessed prior to indication. AL PAULA MD FACP FAC CCDS Jul 26, 2019 11:50 POS
[2019-07-26] MEDS ORDERED: HEParin 1000 UNIT/ML (10ML VIAL) FOR BOLUS ONE (12:10)
[2019-07-26] MEDS ORDERED: ADENOSINE 3 MG/1 ML (ADENOSCAN) 30ML VIAL IV ONE (12:10)
[2019-07-26] MEDS ORDERED: EPTIFIBATIDE BOLUS 20 ML IV ONE (12:32)
--- NOTE | 2019-07-26 13:57 | Progress Note - Cardiology ---
Cardiology SOAP Progress Note Subjective: No further cp Chronic shortness of breath with exertion No palp or syncope Objective: I&O/Vital Signs 07/26/19 07/26/19 07/26/19 07/26/19 03:58 07:00 08:00 08:00 Temp 36.6 36.5 36.2 Pulse 65 56 61 Resp 18 18 B/P (MAP) 144/88 (106) 133/74 (93) Pulse Ox 90 92 O2 Delivery Room Air Room Air 07/26/19 09:00 Pulse Ox 94 O2 Delivery Room Air 07/26/19 00:00 Intake Total 300 ml Balance 300 ml Constitutional: AAO x 3, well-developed, well-nourished Respiratory: No accessory muscle use; other (fair to good bilat air entry; prolonged exp) Cardiovascular: regular rate-rhythm, S1 and S2, systolic murmur (faint SAMANTHA at card base) Gastrointestional: No tender; soft; No guarding, No rebound; audible bowel sounds Extremities: No clubbing, No cyanosis, No significant edema Neurologic/Psychiatric: oriented x 3, other (moves all limbs equally) Skin: No rash on exposed areas, No ulcerations on exposed areas A/P: Assessment: Unstable angina. Card cath on 07/26/19: 30% mid LMCA (FFR 0.96); mod plaque of LAD and LCX; long, severely calcified proximal and mid RCA with multiple stenoses of up to 90% (one of these hard, calcific stenoses remains at 90% after balloon angioplasty on 07/26/19, others reduced to less than 30%); 70% distal RCA stenosis; LVEDP 12 mmHg; LVEF 55-60%; localized apical dyskinesis Hypertension Hyperlipidemia Chronic tobacco use (smoking) that he quit in late 2018 Remote h/o CVA (resulting in gait imbalance that has since resolved). He does not know any details of that Plan: * One stenosis in RCA is resistant to PTCA; would need rotablation. I spoke with Dr Pantoja at [facility] who has kindly accepted the patient in transfer for rotablation. I spoke with Mr Michelle. He agrees * Continue to treat with bb, ASA, clopidogrel, and statin * Advised to continue to refrain from tobacco use Clinical Quality Measures AMI/AHF: ASA po Prior to arrival: AL Valdez MD FACP FACC CCDS Jul 26, 2019 13:57 POS
[2019-07-26] MEDS ORDERED: NS IV 1000 ML 1,000 ML IV SCH (13:58)
[2019-07-26] MEDS ORDERED: PATIENT MAY USE OWN MEDS, ALL PO SCH (14:00)
--- NOTE | 2019-07-26 14:03 | Cardiology Discharge Summary ---
Diagnosis/Chief Complaint Date of Admission Jul 25, 2019 at 12:15 Date of Discharge 07/26/19 Final/Discharge Diagnosis Unstable angina. Card cath on 07/26/19: 30% mid LMCA (FFR 0.96); mod plaque of LAD and LCX; long, severely calcified proximal and mid RCA with multiple stenoses of up to 90% (one of these hard, calcific stenoses remains at 90% after balloon angioplasty on 07/26/19, others reduced to less than 30%); 70% distal RCA stenosis; LVEDP 12 mmHg; LVEF 55-60%; localized apical dyskinesis Hypertension Hyperlipidemia Chronic tobacco use (smoking) that he quit in late 2018 Remote h/o CVA (resulting in gait imbalance that has since resolved). He does not know any details of that Chief Complaint/HPI Chief Complaint/HPI HPI 73 yo man admitted to Dr Hughes from [facility] with chest discomfort: onset several months ago, averaging once or twice a week, midsternal, pressure-like, m oderate in intensity, w/o radiation, occurring at rest, relieved with 's s/l NTG, not associated with other symptoms. He has chronic exertional shortness of breath He has chronic, intermittent palpitations consisting of a hard heart or a dropped beat or a flip-flop. No sustained palpitations No syncope or presyncope Please refer to our progress note of today's date (07/26/19) for condition at discharge. He is being transferred to [facility] (Dr Pantoja) for RCA rotablation Discharge Summary Discussion & Recommendations Home Medications Reviewed patient Home Medication Reconciliation performed by pharmacy medication reconciliations instrument technician and/or nursing. Patients Allergies have been reviewed. Discharge Home Medications: Reviewed and agree with Discharge Medication list on patient's Discharge Instruction sheet Clinical Quality Measures AMI/AHF: ASA po Prior to arrival: No DVT/VTE Risk/Contraindication: Risk Factor Score Per Nursin RFS Level Per Nursing on Admit: 4+=Very High AL PAULA MD FACP FAC CCDS Jul 26, 2019 14:03 POS
--- NOTE | 2019-07-26 14:11 | CARDIAC CATHETERIZATION ---
DATE OF SERVICE: 07/26/2019 CARDIAC CATHETERIZATION AND CORONARY INTERVENTION REPORT The patient is a 73-year-old man with multiple coronary artery disease risk factors and symptoms of unstable angina. Cardiac catheterization was carried out today after having obtained informed consent. DESCRIPTION OF PROCEDURE: He was brought to the cardiac catheterization laboratory in a fasting state. Right groin was prepared and draped in the usual sterile fashion. A 1% lidocaine was used for local anesthesia. Modified Seldinger technique was used to advance a 5-Marshallese sheath in the right femoral artery, 5-Marshallese JL3.5 catheter was used for left coronary angiography, 5-Marshallese JR4 catheter was used for right coronary angiography, 5-Marshallese pigtail catheter was used for left heart catheterization, left ventricular angiography. FRACTIONAL FLOW RESERVE MEASUREMENT: A fractional flow reserve measurement was carried out across a lesion in the left main coronary artery, which appeared to be 30% to 40%. We used a 5-Marshallese JL3.5 catheter. We advanced the pressure wire across the lesion and the tip was placed in the mid left anterior descending artery. We kept the catheter disengaged from the left main coronary artery throughout the study. We gave 140 mcg per kilogram of adenosine for 2-1/2 minutes. Fractional flow reserve was 0.96, indicating hemodynamic nonsignificance of the lesion. PERCUTANEOUS INTERVENTION OF THE RIGHT CORONARY ARTERY: The right coronary artery is dominant and had multiple stenoses. The proximal and mid right coronary artery exhibits a long lesion, which is severely calcified and has multiple up to 90% stenoses. The distal right coronary artery had approximately 70% stenosis. We exchanged the sheath over a wire for a 7-Marshallese sheath. We used a 7-Marshallese JR4 guide catheter with side holes. We advanced a ChoICE extra support wire across the lesion and the tip was placed in the terminal posterolateral branch of the right coronary artery. We carried out balloon angioplasty in the proximal and mid right coronary artery with Emerge 3.0 x 30 mm, NC Quantum 3.0 x 30 mm and Quantum NC 3.0 x 15 mm balloons. One lesion remained 90%. The other lesions improved to less than 30%. The 90% lesion is very severely calcified and is extremely hard and not responsive balloon angioplasty. For this, rotablation is recommended and we are recommending transfer to [facility] for this. The patient remained stable after this intervention. HEMODYNAMICS: Left ventricular end-diastolic pressure following coronary angiography was 12 mmHg. There is no significant pressure gradient on pullback across the aortic valve. Ascending aortic pressure was 107/61 with a mean of 72 mmHg. CORONARY ANGIOGRAPHY: Left main coronary artery had 30% mid vessel stenosis and fractional flow reserve across this is 0.96. Left anterior descending and left circumflex arteries have diffuse mild to moderate plaque. Right coronary artery is dominant and has a long, severely calcified lesion in its proximal and mid portions with stenosis up to 90%. Following balloon angioplasty, one of these lesions remained at 90% and the others have improved to less than 30%. The distal right coronary artery has 70% stenosis, which was not intervened. LEFT VENTRICULAR ANGIOGRAPHY: Left ventricular angiography was carried out in the right anterior oblique projection. Global left ventricular systolic function is well preserved. Left ventricular ejection fraction of 55% to 60%. There is localized apical dyskinesis. CONCLUSIONS: 1. Coronary artery disease consisting mainly of a long severely calcified segment of multiple 90% stenosis in the proximal and mid right coronary, one of which remains at 90% following balloon angioplasty today (very hard, calcific lesion). This right coronary artery has 70% stenosis. Left main coronary artery has 30% mid vessel stenosis. Fractional flow reserve was 0.96. The left coronary system has diffuse moderate plaques. 2. Well-preserved left ventricular systolic function with an ejection fraction of 55% to 60% and localized apical dyskinesis. 3. Normal left ventricular end-diastolic pressure. DISCUSSION AND RECOMMENDATIONS: The right coronary artery is severely calcified and a 90% stenosis is not amenable to balloon angioplasty. For this, we have recommended rotablation. I spoke with Dr. Pantoja of [facility] who has accepted the patient in transfer. We will make arrangements. He remains on dual-antiplatelet therapy. Job ID: [id number] DocumentID: [id number] Dictated Date: 07/26/2019 13:43:24 Core Stripper Date: 07/26/2019 14:11:12 Dictated By: AL PAULA MD, MA, FACP, FACC, MTDD
--- NOTE | 2019-07-26 17:13 | NUR ---
Transferred to [facility] in [facility] [place] per [facility]
== END 2019-07-26 17:13 | disposition designated cancer center or children's hospital (05) ==
LOC: EDUNIT# 10:03 → ER FS 10:05 → CATH 12:15 → ICU 12:15 → UNDOADMOB 12:15 → INTOOBSV 12:15 → ICU 07-26 12:03 → UNDODISOB 07-26 17:13 → CATH 07-26 17:13
PROVIDERS: ATTEND Internal Medicine
DX: I20.0 Unstable angina (principal); I10 Essential (primary) hypertension; E78.5 Hyperlipidemia, unspecified; Z86.73 Personal history of transient ischemic attack (TIA), and cerebral infarction without residual deficits; Z90.89 Acquired absence of other organs; Z87.891 Personal history of nicotine dependence
CPT/HCPCS: 36415; 71045; 80053; 83735; 83880; 84484; 85025; 85610; 85730; 87081; 93005; 93041; 93458

== ENCOUNTER → 2019-08-23 | Outpatient (CLI) | payer MEDICARE | LOC: CARD 10:59 | PROVIDERS: ATTEND Internal Medicine Cardiovascular Disease | DX: R00.2 Palpitations (principal) | CPT/HCPCS: 93225; 93226 ==

== ENCOUNTER 2021-06-23 10:42 | Emergency (ER) | payer MEDICARE ==
[~2021-06-23] VITALS: Ht 172.7 cm; Wt 79.4 kg
--- NOTE | 2021-06-23 11:08 | ED General ---
General Chief Complaint: Cardiac/General Problems Stated Complaint: DECREASED HR (37) Nursing Triage Note: Patient reports his heart rate has been low (37) since yesterday. He reports he walked his dogs this morning and felt better. He reports feeling shortness of breath when his heart rate gets low, but reports it is better on arrival to the ED. Source of Information: Patient History of Present Illness Date Seen by Provider: Jun 23, 2021 Time Seen by Provider: 10:46 Initial Comments 75-year-old male presenting with complaints of low heart rate. He states that since yesterday he has been feeling short of breath at times and has noticed that when he took his blood pressure his heart rate at times have been down in the 30s. He has had similar symptoms in the past with his medications and they have had to decrease the dose. It has been about 3 months since I last decreased his dose. He states that he had taken his dogs for a walk this morning and feels better. He is not having any symptoms currently. He has had no nausea, vomiting, chest pain, headache, blurred vision, abdominal pain, pain with urination, cough. Timing/Duration: 1 Day Severity: Moderate Modifying Factors: worse with Medication Associated Systoms: No Chest Pain, No Cough, No Diaphoresis, No Fever/Chills, No Headaches, No Loss of Appetite, No Malaise, No Nausea/Vomiting, No Rash, No Seizure; Shortness of Air (When his heart rate is low); No Syncope, No Weakness Allergies and Home Medications Allergies Coded Allergies: No Known Drug Allergies (Unverified , 07/22/19) Patient Home Medication List Home Medication List Reviewed: Yes Metoprolol Tartrate (Metoprolol Tartrate) 25 Mg Tablet, 12.5 MG PO BID Prescribed by: PRUDENCE SIBLEY on 06/23/21 8172 Review of Systems Review of Systems Constitutional: No chills, No dizziness, No fever EENTM: no symptoms reported Respiratory: see HPI Cardiovascular: see HPI Gastrointestinal: no symptoms reported Genitourinary: no symptoms reported Musculoskeletal: no symptoms reported Skin: no symptoms reported Psychiatric/Neurological: Anxiety Past Pkprkkg-Udmtdr-Nvnlgx Hx Seasonal Allergies Seasonal Allergies: No Past Medical History Surgeries: Yes Appendectomy, Coronary Stent Respiratory: No Cardiac: Yes Hypertension Neurological: Yes (CVA 2009 and 2016) Stroke Genitourinary: No Gastrointestinal: Yes Diverticulosis Musculoskeletal: No Endocrine: No HEENT: No Cancer: No Psychosocial: No Integumentary: No Blood Disorders: No Physical Exam Vital Signs Vital Signs - First Documented 06/23/21 10:53 Temp 35.9 Pulse 66 Resp 20 B/P (MAP) 152/95 (114) Pulse Ox 96 O2 Delivery Room Air Capillary Refill : Less Than 3 Seconds Height, Weight, BMI Height: '" Weight: lbs. oz. kg; 26.00 BMI Method: General Appearance: No Apparent Distress, WD/WN HEENT: PERRL/EOMI, Pharynx Normal Neck: Full Range of Motion, Normal Inspection, Non Tender, Supple Respiratory: Chest Non Tender, Lungs Clear, Normal Breath Sounds Cardiovascular: Regular Rate, Rhythm, Normal Peripheral Pulses Gastrointestinal: Normal Bowel Sounds, No Pulsatile Mass, Non Tender, Soft Rectal: Deferred Extremity: Normal Capillary Refill, Normal Inspection, Normal Range of Motion, Non Tender, No Pedal Edema Neurologic/Psychiatric: Alert, Oriented x3, No Motor/Sensory Deficits, elementary assistant teacher II- XII Norm as Tested Skin: Normal Color, Warm/Dry Progress/Results/Core Measures Suspected Sepsis SIRS Temperature: Pulse: 66 Respiratory Rate: 20 Laboratory Tests 06/23/21 11:00: White Blood Count 7.9 Blood Pressure 152 /95 Mean: 114 Laboratory Tests 06/23/21 11:00: Creatinine 1.16, INR Comment 1.0, Platelet Count 251, Total Bilirubin 0.7 Results/Orders Lab Results Laboratory Tests Test 06/23/21 11:00 Range/Units White Blood Count 7.9 4.3-11.0 10^3/uL Red Blood Count 5.48 4.30-5.52 10^6/uL Hemoglobin 16.5 13.3-17.7 g/dL Hematocrit 49 40-54 % Mean Corpuscular Volume 89 80-99 fL Mean Corpuscular Hemoglobin 30 25-34 pg Mean Corpuscular Hemoglobin Concent 34 32-36 g/dL Red Cell Distribution Width 13.3 10.0-14.5 % Platelet Count 251 130-400 10^3/uL Mean Platelet Volume 10.1 9.0-12.2 fL Immature Granulocyte % (Auto) 0 % Neutrophils (%) (Auto) 66 42-75 % Lymphocytes (%) (Auto) 24 12-44 % Monocytes (%) (Auto) 8 0-12 % Eosinophils (%) (Auto) 1 0-10 % Basophils (%) (Auto) 1 0-10 % Neutrophils # (Auto) 5.2 1.8-7.8 X 10^3 Lymphocytes # (Auto) 1.9 1.0-4.0 X 10^3 Monocytes # (Auto) 0.6 0.0-1.0 X 10^3 Eosinophils # (Auto) 0.1 0.0-0.3 10^3/uL Basophils # (Auto) 0.1 0.0-0.1 10^3/uL Immature Granulocyte # (Auto) 0.0 0.0-0.1 10^3/uL Prothrombin Time 13.4 12.2-14.7 SEC INR Comment 1.0 0.8-1.4 Activated Partial Thromboplast Time 31 24-35 SEC Sodium Level 140 135-145 MMOL/L Potassium Level 4.4 3.6-5.0 MMOL/L Chloride Level 104 98-107 MMOL/L Carbon Dioxide Level 22 21-32 MMOL/L Anion Gap 14 5-14 MMOL/L Blood Urea Nitrogen 13 7-18 MG/DL Creatinine 1.16 0.60-1.30 MG/DL Estimat Glomerular Filtration Rate 61 BUN/Creatinine Ratio 11 Glucose Level 101 70-105 MG/DL Calcium Level 10.3 H 8.5-10.1 MG/DL Corrected Calcium 8.5-10.1 MG/DL Magnesium Level 2.1 1.6-2.4 MG/DL Total Bilirubin 0.7 0.1-1.0 MG/DL Aspartate Amino Transf (AST/SGOT) 26 5-34 U/L Alanine Aminotransferase (ALT/SGPT) 27 0-55 U/L Alkaline Phosphatase 91 40-136 U/L Troponin I < 0.30 <0.30 NG/ML Pro-B-Type Natriuretic Peptide 348.8 H <75.0 PG/ML Total Protein 7.7 6.4-8.2 GM/DL Albumin 5.0 H 3.2-4.5 GM/DL My Orders Orders - PRUDENCE SIBLEY MD Ekg Tracing (06/23/21 10:49) Cbc With Automated Diff (06/23/21 10:59) Magnesium (06/23/21 10:59) Chest 1 View Ap/Pa Only (06/23/21 10:59) Comprehensive Metabolic Panel (06/23/21 10:59) Protime With Inr (06/23/21 10:59) Partial Thromboplastin Time (06/23/21 10:59) Monitor-Rhythm Ecg Trace Only (06/23/21 10:59) Ed Iv/Invasive Line Start (06/23/21 10:59) Troponin I Fs (06/23/21 10:59) Probnp Fs (06/23/21 10:59) Iohexol Injection (Omnipaque 350 Mg/Ml 1 (06/23/21 11:15) Received Contrast (Hold Metformin- Contr (06/23/21 11:15) Sodium Chloride Flush (Catheter Flush Sy (06/23/21 11:15) Ns (Ivpb) (Sodium Chloride 0.9% Ivpb Bag (06/23/21 11:15) Vital Signs/I&O 06/23/21 06/23/21 10:53 12:11 Temp 35.9 Pulse 66 50 Resp 20 16 B/P (MAP) 152/95 (114) 153/74 Pulse Ox 96 98 O2 Delivery Room Air Room Air Capillary Refill : Less Than 3 Seconds Blood Pressure Mean: 114 Progress Note #1: Progress Note Check basic labs as well as cardiac enzymes and electrolytes. Chest x-ray and electrocardiogram. As patient did take his metoprolol this morning his heart rate may drop lower again. Advised that he had likely will need to have that adjusted again to help prevent his heart rate from going to low. Will make sure that his electrolytes and heart enzymes and blood work look okay today. Differential diagnosis medication side effect, coronary artery disease, heart attack, pneumonia, electrolyte imbalance Progress Note #2: Time: 11:37 Progress Note Labs all appear stable without acute significant abnormality. His cardiac enzymes are negative for acute coronary syndrome or myocardial infarction. His chest x-ray appears stable from prior imaging without acute infiltrate or effusion. He has sinus rhythm on his electrocardiogram without ectopy. Will encourage patient to decrease his metoprolol to 12.5 mg twice a day from the 25 mg twice a day. Have him check back with his primary provider for further direction about his medicines and slow heart rate. Upon further discussion with patient and family he is unsure of the exact dose of metoprolol he is taking. He might already be on 12.5 mg twice a day. Advised to half what ever dose he is taking at home or hold his metoprolol until he can talk to Dr. Alas any and get better direction from him. ECG Initial ECG Impression Date: Jun 23, 2021 Initial ECG Impression Time: 10:47 Initial ECG Rate: 56 Initial ECG Rhythm: Normal Sinus Initial ECG Comparisson: Unchanged Comment Sinus rhythm with a heart rate of 56 bpm. VA interval [address] elevation. He does have some baseline artifact present. QT interval 411 ms with a QTc interval 397 ms. Appears similar to prior tracings from 2019. Diagnostic Imaging Diagonstic Imaging: Xray Plain Films/CT/US/NM/MRI: chest Comments NAME: NEELAM [facility]ALTERS [facility] REC#: [id number] PT STATUS: REG ER : 1945 PHYSICIAN: PRUDENCE SIBLEY MD ADMIT DATE: 06/23/21/ER FS Draft Date of Exam:06/23/21 CHEST 1 VIEW AP/PA ONLY Indication: Chest pain with bradycardia. Comparison: 07/25/2019. Discussion: Single portable upright view of the chest was obtained. Normal heart size. No consolidation, pleural fluid, or pneumothorax. No osseous abnormality. Impression: 1. Negative portable chest. Dictated on workstation # [id number] Dict: 06/23/21 1202 Trans: 06/23/21 1204 CV [id number] Interpreted by: ESTHER RICHTER MD Electronically signed by: Departure Impression Primary Impression: Bradycardia Disposition: 01 HOME, SELF-CARE Condition: Stable Departure-Patient Inst. Decision time for Depature: 11:42 Referrals: MIKALA CAMPBELL MD (PCP/Family) Primary Care Physician Patient Instructions: Bradycardia Add. Discharge Instructions: Your tests here all look stable for you and no sign of heart attack or new heart damage. Decrease your Metoprolol from 25 mg twice a day to 12.5 mg twice a day. 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 Campbell and your stone fabricator about your medicine and slow heart rate. They may have to do further adjustment of your medicines, especially if this does not help with cutting your Metoprolol dose in half. All discharge instructions reviewed with patient and/or family. Voiced understanding. Scripts Metoprolol Tartrate (Metoprolol Tartrate) 25 Mg Tablet 12.5 MG PO BID for Blood Pressure for 30 Days, #30 TAB 0 Refills Prov: PRUDENCE SIBLEY MD 06/23/21 PRUDENCE SIBLEY MD Jun 23, 2021 11:08
[2021-06-23] MEDS ORDERED: NS 100 ML (IVPB) BAG IV ONE (11:15)
[2021-06-23] MEDS ORDERED: HOLD METFORMIN - RECEIVED CONTRAST 20 ML VIAL IV SCH (11:15)
[2021-06-23] MEDS ORDERED: CATHETER FLUSH 10 ML SYR IV PRN (11:15)
[2021-06-23] MEDS ORDERED: IOHEXOL 350 MG/ML 100 ML (OMNIPAQUE 350) VIAL IV ONE (11:15)
[2021-06-23 11:27] LABS: PROTHROMBIN TIME PATIENT 13.4 SEC (12.2-14.7)
[2021-06-23 11:28] LABS: BASOPHILS # (AUTO) 0.1 10^3/uL (0.0-0.1); BASOPHILS % (AUTO) 1 % (0-10); EOSINOPHILS # (AUTO) 0.1 10^3/uL (0.0-0.3); EOSINOPHILS % (AUTO) 1 % (0-10); HEMATOCRIT 49 % (40-54); HEMOGLOBIN 16.5 g/dL (13.3-17.7); LYMPHOCYTES # (AUTO) 1.9 X 10^3 (1.0-4.0); LYMPHOCYTES % (AUTO) 24 % (12-44); MEAN CORPUSCULAR HEMOGLOBIN 30 pg (25-34); MEAN CORPUSCULAR HGB CONC 34 g/dL (32-36); MEAN CORPUSCULAR VOLUME 89 fL (80-99); MEAN PLATELET VOLUME 10.1 fL (9.0-12.2); MONOCYTES # (AUTO) 0.6 X 10^3 (0.0-1.0); MONOCYTES % (AUTO) 8 % (0-12); NEUTROPHILS # (AUTO) 5.2 X 10^3 (1.8-7.8); NEUTROPHILS % (AUTO) 66 % (42-75); PLATELET COUNT 251 10^3/uL (130-400); WHITE BLOOD COUNT 7.9 10^3/uL (4.3-11.0)
[2021-06-23 11:29] LABS: ALANINE AMINOTRANSFERASE 27 U/L (0-55); ALKALINE PHOSPHATASE 91 U/L (40-136); BILIRUBIN,TOTAL 0.7 MG/DL (0.1-1.0); BUN/CREATININE RATIO 11; CALCIUM 10.3 MG/DL (8.5-10.1); CARBON DIOXIDE 22 MMOL/L (21-32); CHLORIDE 104 MMOL/L (98-107); CREATININE SERUM 1.16 MG/DL (0.60-1.30); GFR ESTIMATED 61; GLUCOSE 101 MG/DL (70-105); MAGNESIUM 2.1 MG/DL (1.6-2.4); POTASSIUM 4.4 MMOL/L (3.6-5.0); SODIUM 140 MMOL/L (135-145); TOTAL PROTEIN 7.7 GM/DL (6.4-8.2)
[2021-06-23] MEDS ORDERED: METO-333 PO (11:42)
--- NOTE | 2021-06-23 12:04 | Diagnostic Imaging Report ---
Indication: Chest pain with bradycardia. Comparison: 07/25/2019. Discussion: Single portable upright view of the chest was obtained. Normal heart size. No consolidation, pleural fluid, or pneumothorax. No osseous abnormality. Impression: 1. Negative portable chest. Dictated by: Dictated on workstation # [id number]
[2021-06-23 12:11] VITALS: BP 153/74
== END 2021-06-23 12:20 | disposition home or self-care (01) ==
LOC: EDUNIT# 10:42 → ER FS 10:44
DX: R00.1 Bradycardia, unspecified (principal); I10 Essential (primary) hypertension; Z86.73 Personal history of transient ischemic attack (TIA), and cerebral infarction without residual deficits; Z79.899 Other long term (current) drug therapy
CPT/HCPCS: 36415; 71045; 80053; 83735; 83880; 84484; 85025; 85610; 85730; 93005; 93041

== ENCOUNTER → 2021-07-30 | Outpatient (CLI) | payer MEDICARE ==
[~2021-07-30] MED LIST: CATHETER FLUSH 10 ML SYR IV PRN; METO-333 PO; REGADENOSON 0.4 MG/5 ML SYR (LEXISCAN) IV ONE
[2021-07-30 13:00] VITALS: BP 145/90
--- NOTE | 2021-08-01 14:18 | STRESS TEST ---
DATE OF SERVICE: 07/30/2021 RESTING AND POST REGADENOSON TECHNETIUM-99M TETROFOSMIN SPECT CT IMAGING ORDERING PHYSICIAN: Dr. Mcqueen. PRIMARY PHYSICIAN: Dr. Zaldivar. CLINICAL DIAGNOSIS: Coronary artery disease. Baseline images were carried out after injection of 10.96 mCi of technetium-99m Tetrofosmin. This was followed by 0.4 mg regadenoson and 31.8 mCi of technetium-99m Tetrofosmin for stress imaging. The electrocardiogram showed sinus rhythm at baseline. There appears to be old inferior wall myocardial infarction on the electrocardiogram. Isolated premature ventricular contractions were seen on this study. He noted mild shortness of breath following regadenoson infusion. Overall, he tolerated the procedure well. Review of images at rest and following stress indicates a large inferolateral perfusion defect that is predominantly fixed. Gated images show inferolateral akinesis. Left ventricular ejection fraction is 37%. Left ventricular end diastolic volume is 86 mL. CONCLUSIONS: 1. Large inferolateral myocardial infarction without significant ischemia. 2. Inferolateral akinesis. 3. Left ventricular ejection fraction is calculated to be 37%. Job ID: [id number] DocumentID: [id number] Dictated Date: 08/01/2021 12:06:57 Pack Mule Worker Date: 08/01/2021 14:16:56 Dictated By: AL MCQUEEN MD, MA, FACP, FACC,
== END ==
LOC: CARD 10:50
PROVIDERS: ATTEND Internal Medicine Cardiovascular Disease
DX: I25.10 Atherosclerotic heart disease of native coronary artery without angina pectoris (principal)
CPT/HCPCS: 78452; 93017; A9502

== ENCOUNTER → 2021-08-20 | Outpatient (CLI) | payer MEDICARE ==
[~2021-08-20] MED LIST changes: -CATHETER FLUSH 10 ML SYR IV PRN; -REGADENOSON 0.4 MG/5 ML SYR (LEXISCAN) IV ONE
== END ==
LOC: CARD 13:30
PROVIDERS: ATTEND Internal Medicine Cardiovascular Disease
DX: R00.1 Bradycardia, unspecified (principal); R53.83 Other fatigue
CPT/HCPCS: 93225; 93226; 93306

== ENCOUNTER → 2021-08-29 | Outpatient (CLI) | payer MEDICARE ==
[2021-08-29 11:03] LABS: HEMATOCRIT 47 % (40-54); HEMOGLOBIN 16.3 g/dL (13.3-17.7); MEAN CORPUSCULAR HEMOGLOBIN 30 pg (25-34); MEAN CORPUSCULAR HGB CONC 34 g/dL (32-36); MEAN CORPUSCULAR VOLUME 88 fL (80-99); MEAN PLATELET VOLUME 9.5 fL (9.0-12.2); PLATELET COUNT 279 10^3/uL (130-400); WHITE BLOOD COUNT 6.4 10^3/uL (4.3-11.0)
[2021-08-29 11:04] LABS: BASOPHILS # (AUTO) 0.1 10^3/uL (0.0-0.1); BASOPHILS % (AUTO) 1 % (0-10); EOSINOPHILS # (AUTO) 0.1 10^3/uL (0.0-0.3); EOSINOPHILS % (AUTO) 2 % (0-10); LYMPHOCYTES # (AUTO) 1.6 X 10^3 (1.0-4.0); LYMPHOCYTES % (AUTO) 25 % (12-44); MONOCYTES # (AUTO) 0.6 X 10^3 (0.0-1.0); MONOCYTES % (AUTO) 9 % (0-12); NEUTROPHILS % (AUTO) 63 % (42-75)
[2021-08-29 11:36] LABS: ALANINE AMINOTRANSFERASE 25 U/L (0-55); ALKALINE PHOSPHATASE 96 U/L (40-136); BILIRUBIN,TOTAL 0.5 MG/DL (0.1-1.0); BUN/CREATININE RATIO 9; CALCIUM 9.9 MG/DL (8.5-10.1); CARBON DIOXIDE 24 MMOL/L (21-32); CHLORIDE 102 MMOL/L (98-107); CREATININE SERUM 1.18 MG/DL (0.60-1.30); GFR ESTIMATED 60; GLUCOSE 104 MG/DL (70-105); POTASSIUM 4.1 MMOL/L (3.6-5.0); SODIUM 139 MMOL/L (135-145); TOTAL PROTEIN 7.5 GM/DL (6.4-8.2)
[2021-08-29 11:37] LABS: ALBUMIN 4.7 GM/DL (3.2-4.5)
[2021-08-29 11:45] LABS: ERYTHROCYTE SEDIMENTATION RATE 2 MM/HR (0-30)
[2021-08-29 16:09] LABS: CHOLESTEROL 160 MG/DL (< 200); HDL CHOLESTEROL 47 MG/DL (40-60); TRIGLYCERIDES 113 MG/DL (<150); VLDL CHOLESTEROL 23 MG/DL (5-40)
== END ==
LOC: LAB FS 10:28
PROVIDERS: ATTEND Internal Medicine Cardiovascular Disease
DX: E78.2 Mixed hyperlipidemia (principal); R00.2 Palpitations
CPT/HCPCS: 36415; 80053; 80061; 84443; 85025; 85652

== ENCOUNTER → 2023-08-04 | Outpatient (CLI) | payer MEDICARE | LOC: CARD 10:46 | PROVIDERS: ATTEND Nurse Practitioner Family | DX: I51.7 Cardiomegaly (principal); I34.0 Nonrheumatic mitral (valve) insufficiency; I25.10 Atherosclerotic heart disease of native coronary artery without angina pectoris; I25.5 Ischemic cardiomyopathy | CPT/HCPCS: 93306 ==